=== PATIENT | male | born 1960 | race Caucasian/White ===

== ENCOUNTER 2019-12-11 17:31 | Emergency (ER) | payer OTHER, SELFPAY ==
[2019-12-11 17:38] VITALS: BP 147/85; PULSE 84; RESP 14; TEMP 36.6; O2SAT 99; BMI 33.5
--- NOTE | 2019-12-11 19:34 | ED_ITS ---
HPI - Wound/Laceration General Chief Complaint: Wound/Laceration Stated Complaint: Left thumb laceration, cut with table saw Time Seen by Provider: 12/11/19 19:34 Source: patient Mode of arrival: Ambulatory Limitations: no limitations History of Present Illness HPI narrative: The patient injured his left thumb about 40 minutes prior to arriving ER. He was using a table saw at home, he nicked the tip of his left t humb with the saw. He is bandage when I enter the room. There is no active bleeding. He is right-hand dominant. His last tetanus is unknown. He has no other acute injuries. Related Data Home Medications Medication Instructions Recorded Confirmed multivitamin [Multiple Vitamins] 1 tab PO QDAY #0 10/25/16 04/21/19 Previous Rx's Medication Instructions Recorded azithromycin 500 mg tablet See Rx Instructions PO .COMPLEX #6 04/21/19 tab lisinopril 20 1 tab PO QDAY #90 tab 10/07/19 mg-hydrochlorothiazide 12.5 mg tablet paroxetine HCl 40 mg tablet 40 mg PO DAILY #90 tab 10/07/19 Allergies Allergy/AdvReac Type Severity Reaction Status Date / Time No Known Drug Allergies Allergy Verified 12/11/19 17:38 Review of Systems Review of Systems ROS Unobtainable: All systems reviewed & are unremarkable except as noted in HPI and below Musculoskeletal Comments: Left thumb injuries noted HPI. Integumentary/Breasts Skin/Breast: Reports system reviewed and no additional complaints, except as docu Neurologic Comments: No numbness or tenderness to the left thumb. Patient History Medical History Anxiety (Chronic ~1999) Chicken pox (Resolved) Chronic back pain (Chronic ~1999) Hearing loss (Chronic ~2001) Hypertension (Chronic ~2005) Measles (Resolved) Mumps (Resolved) Shoulder pain (Chronic ~2014) Sleep apnea (Chronic ~2014) Vertigo (Chronic ~1999) Vision disorder (Chronic) Surgical History Anesthesia (Resolved) History of knee replacement (~2014) Status post rotator cuff repair (~2014) Family History Brother Age: 68 Hypertension Brother Age: 65 Hypertension Brother Age: 60 Hypertension Father Hypertension Mother Hypertension Stroke Sister Age: 67 Hypertension Social History marital status: household members: spouse lives independently: Yes caregiver/support person: No education level: vocational occupational status: employed Smoking Status: Former smoker alcohol intake: current substance use type: does not use Smoking Status: Former smoker alcohol intake frequency: 0-2 drinks per day Substance Use Type: does not use Exam Initial Vital Signs Initial Vital Signs: Vital Signs Temperature 97.9 F 12/11/19 17:38 Pulse Rate 84 12/11/19 17:38 Respiratory Rate 14 12/11/19 17:38 Blood Pressure 147/85 H 12/11/19 17:38 Pulse Oximetry 99 12/11/19 17:38 Const General: cooperative and well developed Nutritional Appearance: well nourished Skin Other: Superficial laceration to the tip of the left index finger with small avulsion tissue. The site will be cleansed and bandaged. No closure is indicated. Neuro General: alert, oriented x3 and no focal motor deficits Speech: speech normal Extrem Other: As noted above on skin injury. Course Course Course Narrative: Tetanus is updated. The laceration was cleansed and bandaged by the patient's nurse. Orders Ordered: Discontinued Medications Diphtheria/Tetanus/Acell Pertussis (Adacel) 0.5 ml IM .ONCE ONE Stop: 12/11/19 20:04 Last Admin: 12/11/19 20:04 Dose: 0.5 ml Documented by: RONAN Tetanus/Diphtheria Toxoids (Td) 0.5 ml IM .ONCE ONE Stop: 12/11/19 19:56 Vital Signs Vital signs: Vital Signs - 8 hr 12/11/19 20:02 Pulse Rate 64 Respiratory Rate 15 Blood Pressure [Right Arm] 152/89 H Pulse Oximetry 98 Discharge Plan Departure Patient Disposition: Home Clinical Impression: Laceration of finger Qualifiers: Encounter type: initial encounter Finger: thumb Damage to nail status: without damage Foreign body presence: without foreign body Laterality: left Qualified Code(s): S61.012A - Laceration without foreign body of left thumb without damage to nail, initial encounter Discharge Date/Time: 12/11/19 20:11 Instructions: DI for Minor Laceration Activity Restrictions/Additional Instructions: Keep the bandage in place for 2 days. Afterwards cover the injury when physically active, otherwise leave the injury open to the air. Return here if he develops concerns about infection or other problems. Prescriptions: No Action azithromycin 500 mg tablet See Rx Instructions PO .COMPLEX Qty: 6 RF: 0 multivitamin [Multiple Vitamins] 1 EACH tablet 1 tab PO QDAY Qty: 0 RF: 0 lisinopril-hydrochlorothiazide 20-12.5 mg tablet 1 tab PO QDAY Qty: 90 RF: 0 paroxetine HCl 40 mg tablet 40 mg PO DAILY Qty: 90 RF: 0 Referrals: Siobhan Skinner DO [Primary Care Provider] -
[2019-12-11 20:02] VITALS: BP 152/89; PULSE 64; RESP 15; O2SAT 98
[2019-12-11] MEDS: TET,DIPH,PERTUSS(ACELL),VAC/PF 0.5 ML SYRINGE IM (20:04)
== END 2019-12-11 20:11 | disposition home or self-care (01) ==
PROVIDERS: Emergency Provider Emergency Medicine; PCP Family Medicine
DX: S61.012A Laceration without foreign body of left thumb without damage to nail, initial encounter (principal); W29.3XXA Contact with powered garden and outdoor hand tools and machinery, initial encounter; Z23 Encounter for immunization
CPT/HCPCS: 90471; 99283; 90715

== ENCOUNTER → 2020-02-05 09:28 | Outpatient (CLI) | payer OTHER, SELFPAY ==
[2020-02-05 10:31] LABS: Add Manual Diff / Slide Review NO; Basophils Absolute Auto 0 /uL (0-100); Basophils Percent Auto 0.6 % (0-2); Eosinophils Absolute Auto 200 /uL (0-450); Eosinophils Percent Auto 3.1 % (2-4); Hemoglobin 13.4 g/dL (13.5-17.5); Lymphocytes Absolute Auto 1500 /uL (1100-4500); Mean Corpuscular HGB Conc 33.5 % (30-36); Mean Corpuscular Hemoglobin 30.4 PG (26-34); Mean Corpuscular Volume 90.8 fL (80-100); Monocytes Absolute Auto 500 /uL (0-900); Monocytes Percent Auto 8.3 % (3-14); Neutrophils Absolute Auto 3700 /uL (1500-7000); Platelet Count 214 X10^3/uL (150-400); Red Blood Cell Count 4.41 X10^6/uL (4.5-5.9); Red Cell Distribution Width 13.4 % (11.6-14.8); White Blood Cell Count 5.9 X10^3/uL (4.5-11.0)
[2020-02-05 11:42] LABS: Alanine Aminotransferase 29 IU/L (<50); Albumin 4.2 g/dL (3.5-5.0); Albumin Globulin Ratio 1.8 (1.0-2.8); Alkaline Phosphatase 55 U/L (38-126); Aspartate Aminotransferase 33 IU/L (17-59); BUN Creatinine Ratio 16.5 (6-22); Bilirubin Total 0.5 mg/dL (0.2-1.3); Blood Urea Nitrogen 20 mg/dL (9-20); Calcium 9.7 mg/dL (8.4-10.2); Carbon Dioxide 28 mmol/L (22-32); Chloride 103 mmol/L (98-107); Cholesterol 171 mg/dL (140-199); Estimated Glomerular Filt Rate > 60.0 mL/min (>60); Globulin 2.4 g/dL (1.7-4.1); Glucose 95 mg/dL (70-100); HDL Cholesterol 43 mg/dL (40-60); HEMOLYSIS < 15 (0-50); LDL Cholesterol Calculated 93 mg/dL (<100); Potassium 4.5 mmol/L (3.4-5.1); Sodium 138 mmol/L (137-145); Total Protein 6.6 g/dL (6.3-8.2); Triglycerides 177 mg/dL (35-150)
[2020-02-05 12:13] LABS: Prostate Specific Antigen Scrn 0.308 ng/mL (0.1-4.0)
== END ==
PROVIDERS: PCP Family Medicine; Referring Provider Family Medicine; Visit Provider Family Medicine
DX: Z51.81 Encounter for therapeutic drug level monitoring (principal); E78.5 Hyperlipidemia, unspecified; Z12.5 Encounter for screening for malignant neoplasm of prostate; I10 Essential (primary) hypertension
CPT/HCPCS: 36415; 80053; 80061; 85025; G0103

== ENCOUNTER 2020-05-28 19:37 | Observation (INO) | payer OTHER, SELFPAY ==
[2020-05-28] VITALS (9 sets, daily range): BP systolic 110–142; BP diastolic 72–89; PULSE 91–107; RESP 14–25; TEMP 36.6; O2SAT 93–97; BMI 32.1
[2020-05-28 20:23] LABS: Add Manual Diff / Slide Review NO; Basophils Absolute Auto 100 /uL (0-100); Basophils Percent Auto 0.7 % (0-2); Eosinophils Absolute Auto 200 /uL (0-450); Eosinophils Percent Auto 2.1 % (2-4); Hematocrit 37.9 % (41-53); Hemoglobin 12.9 g/dL (13.5-17.5); Lymphocytes Absolute Auto 2200 /uL (1100-4500); Mean Corpuscular HGB Conc 33.9 % (30-36); Mean Corpuscular Hemoglobin 30.8 PG (26-34); Mean Corpuscular Volume 90.9 fL (80-100); Monocytes Absolute Auto 600 /uL (0-900); Monocytes Percent Auto 6.8 % (3-14); Neutrophils Absolute Auto 5100 /uL (1500-7000); Neutrophils Percent Auto 63.4 % (50-75); Platelet Count 227 X10^3/uL (150-400); Red Blood Cell Count 4.17 X10^6/uL (4.5-5.9); Red Cell Distribution Width 12.6 % (11.6-14.8); White Blood Cell Count 8.1 X10^3/uL (4.5-11.0)
[2020-05-28 20:26] LABS: Prothrombin Time 12.1 SECONDS (10.1-12.7)
[2020-05-28 20:28] LABS: PTT Partial Thromboplastin Tim 30 SECONDS (26.4-36.2)
[2020-05-28 20:30] LABS: Alanine Aminotransferase 28 IU/L (<50); Albumin 4.3 g/dL (3.5-5.0); Albumin Globulin Ratio 1.5 (1.0-2.8); Alkaline Phosphatase 48 U/L (38-126); Aspartate Aminotransferase 38 IU/L (17-59); BUN Creatinine Ratio 20.9 (6-22); Bilirubin Total 0.5 mg/dL (0.2-1.3); Blood Urea Nitrogen 28 mg/dL (9-20); Calcium 9.2 mg/dL (8.4-10.2); Carbon Dioxide 26 mmol/L (22-32); Chloride 107 mmol/L (98-107); Estimated Glomerular Filt Rate 54.8 mL/min (>60); Globulin 2.9 g/dL (1.7-4.1); Glucose 129 mg/dL (70-100); HEMOLYSIS 42 (0-50); Potassium 4.3 mmol/L (3.4-5.1); Sodium 137 mmol/L (137-145); Total Protein 7.2 g/dL (6.3-8.2)
--- NOTE | 2020-05-28 20:58 | PC.NURSE ---
patient states black stool for 2 days. Today it got worse with diarrhea. He does not have SOB or dizziness but he is easily fatigued. His lower eyelids are pink and mucous membranes are as well.
[2020-05-28] MEDS: SODIUM CHLORIDE 0.9% 1,000 ML 1000 ML IV (22:27)
--- NOTE | 2020-05-28 22:28 | PC.NURSE ---
verbal order for 1l to be infused at 1000mls/ hour provider order
[2020-05-28 23:30] LABS: Hematocrit 34.8 % (41-53); Hemoglobin 11.8 g/dL (13.5-17.5)
[2020-05-28 23:42] LABS: COVID19 -Nasal RAPID Negative (Negative)
[2020-05-29] VITALS (12 sets, daily range): BP systolic 108–131; BP diastolic 67–90; PULSE 70–88; RESP 13–28; TEMP 36.1–37.2; O2SAT 96–98; BMI 32.1
--- NOTE | 2020-05-29 01:01 | ED.GIBLEED ---
HPI - GI Bleed General Chief complaint: GI Bleed Stated complaint: GASTRIC INSTESTINAL BLACK STOOL Source: patient Mode of arrival: Ambulatory Limitations: no limitations History of Present Illness HPI Narrative: 60-year-old gentleman with a history of hypertension and mild arthritis complaints presents with 2 to T days of black stool with increasing volumes of stool, more diarrhea, increased GI distress without vomiting. Patient has never had a GI bleed previously he does note that he takes 2-3 Aleve every night for simple musculoskeletal complaints. Denies any fevers, chills, chest pain, dyspnea, orthopnea. He is not having overt abdominal pain but does note excessive bowel from [place]. No urinary symptoms, no lower extremity edema and no neurologic complaints today. Related Data Home Medications Medication Instructions Recorded Confirmed multivitamin [Multiple Vitamins] 1 tab PO QDAY #0 10/25/16 02/05/20 Previous Rx's Medication Instructions Recorded lisinopril 20 1 tab PO QDAY #90 tab 02/05/20 mg-hydrochlorothiazide 12.5 mg tablet paroxetine HCl 40 mg tablet 40 mg PO DAILY #90 tab 02/05/20 Allergies Allergy/AdvReac Type Severity Reaction Status Date / Time No Known Drug Allergies Allergy Verified 02/05/20 08:48 Review of Systems Review of Systems Narrative: Remainder of review of systems including constitutional, ENT, cardiovascular, respiratory, GI, , musculoskeletal, skin, neurologic and psychiatric systems reviewed and are unremarkable except as noted in HPI. Patient History Medical History Anxiety (Chronic ~1999) Chicken pox (Resolved) Chronic back pain (Chronic ~1999) Hearing loss (Chronic ~2001) Hypertension (Chronic ~2005) Measles (Resolved) Mumps (Resolved) Shoulder pain (Chronic ~2014) Sleep apnea (Chronic ~2014) Vertigo (Chronic ~1999) Vision disorder (Chronic) Surgical History Anesthesia (Resolved) History of knee replacement (~2014) Status post rotator cuff repair (~2014) Family History Brother Age: 69 Hypertension Brother Age: 66 Hypertension Brother Age: 61 Hypertension Father Hypertension Mother Hypertension Stroke Sister Age: 68 Hypertension Social History marital status: household members: spouse lives independently: Yes caregiver/support person: No education level: vocational occupational status: employed Smoking Status: Former smoker alcohol intake: current substance use type: does not use Smoking Status: Former smoker alcohol intake frequency: 0-2 drinks per day Alcohol type: beer Substance Use Type: does not use Exam Narrative Exam Narrative: General: Healthy appearing, in no acute distress. Able to give a complete and coherent history. Well-nourished well-developed HEENT: Moist mucous membranes, normal sclera with reactive pupils, Neck: , supple Respiratory: Lungs are clear to auscultation, no wheezing no rales no rhonchi. Full and symmetrical air movement Cardiac: Regular rate and rhythm no murmurs no bruits Abdomen: Soft nontender, hyperactive bowel tones, no flank pain Skin: Warm and dry, no rashes Neurologic: Grossly neurologically intact with no obvious asymmetries or abnormalities Extremities: No trauma, well perfused Psych: Cooperative, appropriate insight and affect Initial Vital Signs Initial Vital Signs: Vital Signs Temperature 97.8 F 05/28/20 19:42 Pulse Rate 107 H 05/28/20 19:42 Respiratory Rate 20 05/28/20 19:42 Blood Pressure 142/89 H 05/28/20 19:42 Pulse Oximetry 97 05/28/20 19:42 Course Orders Ordered: ED Orders 05/28/20 20:10 Complete Blood Count AUTO DIFF Stat Comprehensive Metabolic Panel Stat Partial Thromboplastin Time Stat Prothrombin Time INR Stat 05/28/20 21:18 COVID19 Stat 05/28/20 21:42 EKG-12 Lead Stat 05/28/20 23:13 Hemoglobin and Hematocrit Stat 05/29/20 01:14 Partial Thromboplastin Time Stat Prothrombin Time INR Stat Sodium Chloride (Normal Saline 0.9%) 1,000 mls @ 150 mls/hr IV CONT DI Last Infusion: 05/29/20 00:50 Dose: 0 mls/hr Documented by: Admin: 05/28/20 22:27 Dose: 1,000 mls/hr Documented by: LYNDSEY Pantoprazole Sodium 80 mg/ (Sodium Chloride) 100 mls @ 10 mls/hr IV CONT DI Last Infusion: 05/29/20 02:10 Dose: 8 mg/hr, 10 mls/hr Documented by: Admin: 05/29/20 01:26 Dose: 8 mg/hr, 10 mls/hr Documented by: ADRYAN Sodium Chloride (Normal Saline 0.9%) 1,000 mls @ 150 mls/hr IV CONT DI Last Infusion: 05/29/20 02:10 Dose: 150 mls/hr Documented by: Admin: 05/29/20 01:27 Dose: 150 mls/hr Documented by: ADRYAN Vital Signs Vital signs: Vital Signs - 8 hr 05/28/20 22:09 05/28/20 22:11 05/28/20 22:30 Pulse Rate 100 H 100 H 91 H Respiratory Rate 15 14 14 Blood Pressure 110/72 117/79 Pulse Oximetry 93 95 95 05/28/20 23:00 05/28/20 23:30 05/29/20 00:00 Pulse Rate 93 H 92 H 85 Respiratory Rate 15 18 14 Blood Pressure 118/72 126/74 114/70 Pulse Oximetry 95 96 96 05/29/20 00:30 05/29/20 01:00 05/29/20 01:01 Pulse Rate 84 88 84 Respiratory Rate 15 28 H 23 Blood Pressure 114/67 131/73 Pulse Oximetry 96 97 98 05/29/20 01:30 05/29/20 02:00 Pulse Rate 82 79 Respiratory Rate 14 13 Blood Pressure 129/84 120/76 Pulse Oximetry 97 96 MDM - GI Bleed Medical Records Attestation: I reviewed the patient's medical records. Lab Data Attestation: I reviewed the patient's lab results. Result diagrams: 05/28/20 23:13 05/28/20 20:10 Labs: Lab Results 05/28/20 05/28/20 05/28/20 Range/Units 20:10 20:10 20:10 WBC 8.1 (4.5-11.0) X10^3/uL RBC 4.17 L (4.5-5.9) X10^6/uL Hgb 12.9 L (13.5-17.5) g/dL Hct 37.9 L (41-53) % MCV 90.9 (80-100) fL MCH 30.8 (26-34) PG MCHC 33.9 (30-36) % RDW 12.6 (11.6-14.8) % Plt Count 227 (150-400) X10^3/uL Neut % (Auto) 63.4 (50-75) % Lymph % (Auto) 27.0 (25-40) % [place] % (Auto) 6.8 (3-14) % Eos % (Auto) 2.1 (2-4) % Baso % (Auto) 0.7 (0-2) % Neut # (Auto) 5100 (9924-9998) /uL Lymph # (Auto) 2200 (2976-7669) /uL [place] # (Auto) 600 (0-900) /uL Eos # (Auto) 200 (0-450) /uL Baso # (Auto) 100 (0-100) /uL PT 12.1 (10.1-12.7) SECONDS INR 1.0 (0.9-1.3) APTT 30 (26.4-36.2) SECONDS Sodium 137 (137-145) mmol/L Potassium 4.3 (3.4-5.1) mmol/L Chloride 107 (98-107) mmol/L Carbon Dioxide 26 (22-32) mmol/L BUN 28 H (9-20) mg/dL Creatinine 1.34 H (0.66-1.25) mg/dL Estimated GFR 54.8 L (>60) mL/min BUN/Creatinine Ratio 20.9 (6-22) Glucose 129 H (70-100) mg/dL Calcium 9.2 (8.4-10.2) mg/dL Total Bilirubin 0.5 (0.2-1.3) mg/dL AST 38 (17-59) IU/L ALT 28 (<50) IU/L Alkaline Phosphatase 48 (38-126) U/L Total Protein 7.2 (6.3-8.2) g/dL Albumin 4.3 (3.5-5.0) g/dL Globulin 2.9 (1.7-4.1) g/dL Albumin/Globulin Ratio 1.5 (1.0-2.8) COVID-19 PCR (Negative) 05/28/20 05/28/20 05/29/20 Range/Units 21:18 23:13 01:14 WBC (4.5-11.0) X10^3/uL RBC (4.5-5.9) X10^6/uL Hgb 11.8 L (13.5-17.5) g/dL Hct 34.8 L (41-53) % MCV (80-100) fL MCH (26-34) PG MCHC (30-36) % RDW (11.6-14.8) % Plt Count (150-400) X10^3/uL Neut % (Auto) (50-75) % Lymph % (Auto) (25-40) % [place] % (Auto) (3-14) % Eos % (Auto) (2-4) % Baso % (Auto) (0-2) % Neut # (Auto) (2936-8240) /uL Lymph # (Auto) (1516-3701) /uL [place] # (Auto) (0-900) /uL Eos # (Auto) (0-450) /uL Baso # (Auto) (0-100) /uL PT (10.1-12.7) SECONDS INR (0.9-1.3) APTT 30 (26.4-36.2) SECONDS Sodium (137-145) mmol/L Potassium (3.4-5.1) mmol/L Chloride (98-107) mmol/L Carbon Dioxide (22-32) mmol/L BUN (9-20) mg/dL Creatinine (0.66-1.25) mg/dL Estimated GFR (>60) mL/min BUN/Creatinine Ratio (6-22) Glucose (70-100) mg/dL Calcium (8.4-10.2) mg/dL Total Bilirubin (0.2-1.3) mg/dL AST (17-59) IU/L ALT (<50) IU/L Alkaline Phosphatase (38-126) U/L Total Protein (6.3-8.2) g/dL Albumin (3.5-5.0) g/dL Globulin (1.7-4.1) g/dL Albumin/Globulin Ratio (1.0-2.8) COVID-19 PCR Negative (Negative) 05/29/20 Range/Units 01:14 WBC (4.5-11.0) X10^3/uL RBC (4.5-5.9) X10^6/uL Hgb (13.5-17.5) g/dL Hct (41-53) % MCV (80-100) fL MCH (26-34) PG MCHC (30-36) % RDW (11.6-14.8) % Plt Count (150-400) X10^3/uL Neut % (Auto) (50-75) % Lymph % (Auto) (25-40) % [place] % (Auto) (3-14) % Eos % (Auto) (2-4) % Baso % (Auto) (0-2) % Neut # (Auto) (2327-2862) /uL Lymph # (Auto) (2636-2671) /uL [place] # (Auto) (0-900) /uL Eos # (Auto) (0-450) /uL Baso # (Auto) (0-100) /uL PT 12.5 (10.1-12.7) SECONDS INR 1.1 (0.9-1.3) APTT (26.4-36.2) SECONDS Sodium (137-145) mmol/L Potassium (3.4-5.1) mmol/L Chloride (98-107) mmol/L Carbon Dioxide (22-32) mmol/L BUN (9-20) mg/dL Creatinine (0.66-1.25) mg/dL Estimated GFR (>60) mL/min BUN/Creatinine Ratio (6-22) Glucose (70-100) mg/dL Calcium (8.4-10.2) mg/dL Total Bilirubin (0.2-1.3) mg/dL AST (17-59) IU/L ALT (<50) IU/L Alkaline Phosphatase (38-126) U/L Total Protein (6.3-8.2) g/dL Albumin (3.5-5.0) g/dL Globulin (1.7-4.1) g/dL Albumin/Globulin Ratio (1.0-2.8) COVID-19 PCR (Negative) Point of Care Testing Stool Occult Blood Positive Urine Dip Bedside Urine Glucose Negative Bedside Urine Bilirubin - Negative Bedside Urine Ketone - Negative Urine Specific [place] 1.030 Bedside Urine Occult Blood - Negative Bedside Urine pH 6.0 Bedside Urine Protein - Negative Bedside Urine Urobilinogen - Negative Bedside Urine Nitrite - Negative Bedside Urine Leukocytes - Negative Esterase ECG Data Attestation: I personally reviewed and interpreted this ECG as follows: Interpretation: Sinus rhythm at a rate of 91 Normal axis, normal intervals No acute ischemia MDM Narrative Medical decision making narrative: 60-year-old gentleman presents with 3 days of black stools, guaiac positive with slight decrease in H&H. History of nonsteroidal use daily. Minor renal insufficiency with mild dehydration at this time. He is given fluids, Protonix and presumed to have a nonsteroidal-induced upper GI bleed, uncomplicated and hemodynamically stable. Will be admitted for further observation and evaluation. Safe for transfer to the floor Discharge Plan Departure Patient Disposition: Admitted as Observation Clinical Impression: Acute GI bleeding Discharge Date/Time: 05/29/20 02:27 Referrals: Siobhan Skinner DO [Primary Care Provider] - Admit Date/Time: 05/29/20 02:05 Admit Provider: Lillie Sanchez
[2020-05-29] MEDS: PANTOPRAZOLE 80 MG in SODIUM CHLORIDE 0.9% 100 ML 10 ML IV (01:26)
[2020-05-29] MEDS: SODIUM CHLORIDE 0.9% 1,000 ML 150 ML IV ×2 (01:27→06:56)
[2020-05-29 01:32] LABS: PTT Partial Thromboplastin Tim 30 SECONDS (26.4-36.2)
[2020-05-29 01:38] LABS: INR 1.1 (0.9-1.3); Prothrombin Time 12.5 SECONDS (10.1-12.7)
--- NOTE | 2020-05-29 07:26 | PC.NURSE ---
disregard HCp notification at 0600, wrong pt
--- NOTE | 2020-05-29 08:06 | PM.HP.1 ---
History of Present Illness History of Present Illness Date Patient Seen: 05/29/20 Time Patient Seen: 02:30 Chief complaint: GASTRIC INSTESTINAL BLACK STOOL Narrative: Patient is 60-year-old male with a history of hypertension and anxiety. Patient takes lisinopril 20 mg of paroxetine 40 mg. Who states that 2 days ago he began to have 2 stools a day that were black than yesterday evening approximately 630 he began to have black diarrhea, his last diarrhea was at 2:00 p.m. patient denies any pain nausea vomiting artem blood fever body aches chills chest pain or shortness of breath with these events or currently. Patient denies any history of GI bleed, but does note that he drinks 2-3 beers per day and takes 2-3 tabs of Aleve nightly. Patient's vitals upon admission 129/84 heart rate 82 respiration 14 temp 97.8? O2 saturation 97%. Estimated GFR 54.8 creatinine 1.34, BUN 28, hematocrit 34.8, hemoglobin 11.8, RBC 4.17, negative procalcitonin negative PT. 60-year-old gentleman with a history of hypertension and mild arthritis complaints presents with 2 to T days of black stool with increasing volumes of stool, more diarrhea, increased GI distress without vomiting. Patient has never had a GI bleed previously he does note that he takes 2-3 Aleve every night for simple musculoskeletal complaints. Denies any fevers, chills, chest pain, dyspnea, orthopnea. He is not having overt abdominal pain but does note excessive bowel from [place]. No urinary symptoms, no lower extremity edema and no neurologic complaints today. Patient History Medical History Anxiety (Chronic ~1999) Chicken pox (Resolved) Chronic back pain (Chronic ~1999) Hearing loss (Chronic ~2001) Hypertension (Chronic ~2005) Measles (Resolved) Mumps (Resolved) Shoulder pain (Chronic ~2014) Sleep apnea (Chronic ~2014) Vertigo (Chronic ~1999) Vision disorder (Chronic) Surgical History Anesthesia (Resolved) History of knee replacement (~2014) Status post rotator cuff repair (~2014) Family & Social History Family History Brother Age: 69 Hypertension Brother Age: 66 Hypertension Brother Age: 61 Hypertension Father Hypertension Mother Hypertension Stroke Sister Age: 68 Hypertension Social History: household members spouse Prior Living Arrangements House lives independently Yes caregiver/support person No Safety & Behavioral: Feels Safe in Current Yes Environment Suicidal Ideation Description None Suicide Plan Description No Plan Tobacco & Substance use: Tobacco type cigarettes Smoking Status Former smoker alcohol intake current alcohol intake frequency 0-2 drinks per day Substance Use Type does not use Meds Home Medications and Allergies Home Medications Medication Instructions Recorded Confirmed Type multivitamin [Multiple Vitamins] 1 tab PO QDAY #0 10/25/16 02/05/20 History lisinopril 20 1 tab PO QDAY #90 tab 02/05/20 02/05/20 Rx mg-hydrochlorothiazide 12.5 mg tablet paroxetine HCl 40 mg tablet 40 mg PO DAILY #90 tab 02/05/20 02/05/20 Rx Allergies Allergy/AdvReac Type Severity Reaction Status Date / Time No Known Drug Allergies Allergy Verified 02/05/20 08:48 Review of Systems Review of Systems ROS: Yes All systems reviewed with the patient and are negative except as otherwise documented Exam Vital Signs (past 8 hours): - 05/29/20 00:30 05/29/20 01:00 05/29/20 01:01 Temperature Pulse Rate 84 88 84 Respiratory Rate 15 28 H 23 Blood Pressure 114/67 131/73 Pulse Oximetry 96 97 98 05/29/20 01:30 05/29/20 02:00 05/29/20 02:20 Temperature 98.7 F Pulse Rate 82 79 87 Respiratory Rate 14 13 18 Blood Pressure 129/84 120/76 130/82 Pulse Oximetry 97 96 97 Oxygen Delivery Method Room Air Oxygen Flow Rate 0 Narrative Exam Narrative: General: Healthy appearing, in no acute distress. Able to give a complete and coherent history. Well-nourished well-developed HEENT: Moist mucous membranes, normal sclera with reactive pupils, Neck: , supple Respiratory: Lungs are clear to auscultation, no wheezing no rales no rhonchi. Full and symmetrical air movement Cardiac: Regular rate and rhythm no murmurs no bruits Abdomen: Soft nontender, hyperactive bowel tones, no flank pain Skin: Warm and dry, no rashes Neurologic: Grossly neurologically intact with no obvious asymmetries or abnormalities Extremities: No trauma, well perfused Psych: Cooperative, appropriate insight and affect Objective Labs Result Diagrams: 05/28/20 23:13 05/28/20 20:10 Labs: Laboratory Results - last 24 hr 05/28/20 05/28/20 05/28/20 20:10 20:10 20:10 WBC 8.1 RBC 4.17 L Hgb 12.9 L Hct 37.9 L MCV 90.9 MCH 30.8 MCHC 33.9 RDW 12.6 Plt Count 227 Neut % (Auto) 63.4 Lymph % (Auto) 27.0 [place] % (Auto) 6.8 Eos % (Auto) 2.1 Baso % (Auto) 0.7 Neut # (Auto) 5100 Lymph # (Auto) 2200 [place] # (Auto) 600 Eos # (Auto) 200 Baso # (Auto) 100 PT 12.1 INR 1.0 APTT 30 Sodium 137 Potassium 4.3 Chloride 107 Carbon Dioxide 26 BUN 28 H Creatinine 1.34 H Estimated GFR 54.8 L BUN/Creatinine Ratio 20.9 Glucose 129 H Calcium 9.2 Total Bilirubin 0.5 AST 38 ALT 28 Alkaline Phosphatase 48 Total Protein 7.2 Albumin 4.3 Globulin 2.9 Albumin/Globulin Ratio 1.5 COVID-19 PCR 05/28/20 05/28/20 05/29/20 21:18 23:13 01:14 WBC RBC Hgb 11.8 L Hct 34.8 L MCV MCH MCHC RDW Plt Count Neut % (Auto) Lymph % (Auto) [place] % (Auto) Eos % (Auto) Baso % (Auto) Neut # (Auto) Lymph # (Auto) [place] # (Auto) Eos # (Auto) Baso # (Auto) PT INR APTT 30 Sodium Potassium Chloride Carbon Dioxide BUN Creatinine Estimated GFR BUN/Creatinine Ratio Glucose Calcium Total Bilirubin AST ALT Alkaline Phosphatase Total Protein Albumin Globulin Albumin/Globulin Ratio COVID-19 PCR Negative 05/29/20 01:14 WBC RBC Hgb Hct MCV MCH MCHC RDW Plt Count Neut % (Auto) Lymph % (Auto) [place] % (Auto) Eos % (Auto) Baso % (Auto) Neut # (Auto) Lymph # (Auto) [place] # (Auto) Eos # (Auto) Baso # (Auto) PT 12.5 INR 1.1 APTT Sodium Potassium Chloride Carbon Dioxide BUN Creatinine Estimated GFR BUN/Creatinine Ratio Glucose Calcium Total Bilirubin AST ALT Alkaline Phosphatase Total Protein Albumin Globulin Albumin/Globulin Ratio COVID-19 PCR Assessment & Plan Assessment & Plan narrative: 1. Acute GI bleed, stable, acute, present on admission -patient on normal saline 150 cc an hour/Protonix drip 80mg/8 mg per hour -patient NPO -general surgery consult -continue labs H&H CBC CMP PT and INR -negative COVID, EKG stable within normal limits -positive stool occult 2. Hypertension-well controlled chronic Code: Full code VTE prophylaxis: SCDs Surrogate: , Sharon Avendano This is a 60-year-old male who was admitted for acute GI bleed, likely secondary to NSAID and alcohol use, he is admitted to observation. Patient has failed outpatient management and requires a general surgery consult and inpatient medical management. Quality VTE Deep Vein Thrombosis/Pulmonary Embolism Present on Admission: No
[2020-05-29 12:43] LABS: Add Manual Diff / Slide Review NO; Basophils Absolute Auto 0 /uL (0-100); Basophils Percent Auto 0.8 % (0-2); Eosinophils Absolute Auto 100 /uL (0-450); Eosinophils Percent Auto 2.6 % (2-4); Hematocrit 31.2 % (41-53); Hemoglobin 10.8 g/dL (13.5-17.5); Lymphocytes Absolute Auto 2100 /uL (1100-4500); Lymphocytes Percent Auto 38.3 % (25-40); Mean Corpuscular HGB Conc 34.5 % (30-36); Mean Corpuscular Hemoglobin 31.3 PG (26-34); Mean Corpuscular Volume 90.9 fL (80-100); Monocytes Absolute Auto 400 /uL (0-900); Monocytes Percent Auto 8.1 % (3-14); Neutrophils Absolute Auto 2700 /uL (1500-7000); Neutrophils Percent Auto 50.2 % (50-75); Platelet Count 189 X10^3/uL (150-400); Red Blood Cell Count 3.43 X10^6/uL (4.5-5.9); Red Cell Distribution Width 12.8 % (11.6-14.8); White Blood Cell Count 5.5 X10^3/uL (4.5-11.0)
[2020-05-29 12:49] LABS: INR 1.1 (0.9-1.3); Prothrombin Time 12.8 SECONDS (10.1-12.7)
[2020-05-29 12:53] LABS: BUN Creatinine Ratio 20.4 (6-22); Blood Urea Nitrogen 20 mg/dL (9-20); Calcium 8.1 mg/dL (8.4-10.2); Carbon Dioxide 24 mmol/L (22-32); Chloride 111 mmol/L (98-107); Estimated Glomerular Filt Rate > 60.0 mL/min (>60); Glucose 98 mg/dL (70-100); HEMOLYSIS < 15 (0-50); Magnesium 1.9 mg/dL (1.6-2.3); Potassium 4.1 mmol/L (3.4-5.1); Sodium 137 mmol/L (137-145)
--- NOTE | 2020-05-29 13:11 | CM.DANOTE ---
Discharge Planning/Care Management DCP: assessment: case received, EMR reviewed and met with pt and his Sharla during Team Bedside Rounds. Pt is a 60 year old male who admitted early this morning to care of hospitalist team. PCP: Dr. Lito Skinner Consulting: [facility] Serial labs are in process with possibility of EGD if indicated. P: likely home when stable for same but..to be determined as POC proceeds. CM Discharge Assessment Start: 05/29/20 13:10 Freq: Status: Active Protocol: Document 05/29/20 13:11 ITV (Rec: 05/29/20 13:11 ITV [id number]) Discharge Planning Assessment Advance Directives? No History Provided By Patient,Family Member,Medical Record Has Patient been admitted in last 30 No days? Prior Living Arrangements House Household Members spouse Type of transportation used prior to Drives own vehicle admit Independent with ADL's Yes Is patient alert and oriented? Yes
[2020-05-29] MEDS: lisinopriL 20 MG TABLET PO (14:05)
[2020-05-29] MEDS: PARoxetine 20 MG TABLET 40 MG PO (14:05)
--- NOTE | 2020-05-29 17:13 | PC.NURSE ---
Addendum entered by Magalie Hernandes R.N. 05/29/20 17:44: dc instructions given to patient and . pt says they will call PCP and to set up appt. IV removed. all belongings returned to patient. Original Note: pt denied any dizziness, lightheadedness, pain, sob or n/v. vss. no bowel movement for richard shift.
== END 2020-05-29 17:45 | disposition home or self-care (01) ==
LOC: ED 05-29 01:41 → AC 05-29 02:05
PROVIDERS: Admitting Provider Nurse Practitioner Family; Emergency Provider Emergency Medicine; PCP Family Medicine; Referring Provider Emergency Medicine; Visit Provider Nurse Practitioner Family
DX: K92.1 Melena (principal); I10 Essential (primary) hypertension; F41.9 Anxiety disorder, unspecified; M19.90 Unspecified osteoarthritis, unspecified site; Z11.59 Encounter for screening for other viral diseases
CPT/HCPCS: 36415; 80048; 80053; 81003; 82272; 83735; 85014; 85018; 85025; 85610; 85730; 87635; 93005; 96361; 96365; 96366; 99284; G0378; C9113

== ENCOUNTER → 2020-06-01 13:27 | Outpatient (CLI) | payer OTHER, SELFPAY ==
[2020-05-29 02:20] VITALS: BMI 32.1
[2020-06-01 15:58] LABS: Add Manual Diff / Slide Review NO; Basophils Absolute Auto 0 /uL (0-100); Basophils Percent Auto 0.7 % (0-2); Eosinophils Absolute Auto 100 /uL (0-450); Eosinophils Percent Auto 2.4 % (2-4); Hematocrit 35.6 % (41-53); Hemoglobin 12.1 g/dL (13.5-17.5); Lymphocytes Absolute Auto 2000 /uL (1100-4500); Lymphocytes Percent Auto 34.8 % (25-40); Mean Corpuscular HGB Conc 33.8 % (30-36); Mean Corpuscular Hemoglobin 30.8 PG (26-34); Monocytes Absolute Auto 400 /uL (0-900); Monocytes Percent Auto 6.9 % (3-14); Neutrophils Absolute Auto 3100 /uL (1500-7000); Neutrophils Percent Auto 55.2 % (50-75); Platelet Count 237 X10^3/uL (150-400); Red Blood Cell Count 3.91 X10^6/uL (4.5-5.9); Red Cell Distribution Width 12.7 % (11.6-14.8); White Blood Cell Count 5.7 X10^3/uL (4.5-11.0)
[2020-06-01 16:28] LABS: BUN Creatinine Ratio 14.5 (6-22); Blood Urea Nitrogen 16 mg/dL (9-20); Carbon Dioxide 24 mmol/L (22-32); Chloride 106 mmol/L (98-107); Estimated Glomerular Filt Rate > 60.0 mL/min (>60); Glucose 106 mg/dL (70-100); HEMOLYSIS < 15 (0-50); Sodium 137 mmol/L (137-145)
== END ==
PROVIDERS: PCP Family Medicine; Referring Provider Family Medicine; Visit Provider Family Medicine
DX: K92.2 Gastrointestinal hemorrhage, unspecified (principal)
CPT/HCPCS: 36415; 80048; 85025

== ENCOUNTER → 2020-06-21 09:28 | Outpatient (CLI) | payer OTHER, SELFPAY ==
[2020-05-29 02:20] VITALS: BMI 32.1
[2020-06-21 11:51] LABS: COVID19 -Nasal RAPID Negative (Negative)
== END ==
PROVIDERS: PCP Family Medicine; Visit Provider Surgery
DX: Z01.812 Encounter for preprocedural laboratory examination (principal); Z20.828 Contact with and (suspected) exposure to other viral communicable diseases
CPT/HCPCS: 87635; 99211

== ENCOUNTER 2020-06-22 14:07 | Day surgery (SDC) | payer OTHER, SELFPAY ==
[2020-05-29 02:20] VITALS: BMI 32.1
[2020-06-22] VITALS (7 sets, daily range): BP systolic 107–140; BP diastolic 65–97; PULSE 88–108; RESP 11–16; TEMP 35.9–36.6; O2SAT 94–98; BMI 29.7
--- NOTE | 2020-06-22 | PATH_ITS ---
[facility] Accession Number: [id number] . 01 Material submitted: . PART A: duodenum - DUODENUM PART B: gastrointestinal site - STOMACH PART C: esophagus - DISTAL ESOPHAGUS PART D: rectum - RECTAL POLYP AT 25 CM . 01 Clinical history: . SCREENING COLONOSCOPY W/EGD . 02 Diagnosis: A. Duodenum, Biopsy: Duodenal mucosa with no diagnostic abnormality. Negative for active inflammation, features of sprue, dysplasia, or malignancy. . B. Stomach, Biopsy: Antral mucosa with reactive gastropathy. Negative for Helicobacter by immunohistochemistry. Negative for intestinal metaplasia. Negative for dysplasia and malignancy. . C. Distal Esophagus: Columnar mucosa with mild chronic inflammation. Negative for intestinal metaplasia. Negative for dysplasia and malignancy. . D. Rectum, Polyp at 25 cm, Biopsy: Hyperplastic polyp. [facility] 06/28/2020 1242 Local . 02 Electronically signed: . Stephanie Duncan MD, Pathologist NPI- [id number] . 01 Gross description: . Part A: DUODENUM: Received in formalin is 1 fragment(s) of andres, soft tissue measuring 0.3 x 0.2 x 0.1 cm submitted entirely in 1 cassette(s) Part B: STOMACH: Received in formalin is 1 fragment(s) of andres, soft tissue measuring 0.3 x 0.3 x 0.1 cm submitted entirely in 1 cassette(s) Part C: DISTAL ESOPHAGUS: Received in formalin are 2 fragment(s) of andres, soft tissue measuring 0.3 x 0.2 x 0.1 cm to 0.2 x 0.2 x 0.1 cm submitted entirely in 1 cassette(s) Part D: RECTAL POLYP AT 25 CM: Received in formalin is 1 fragment(s) of andres, soft tissue measuring 1.0 x 0.3 x 0.3 cm submitted entirely in 1 cassette(s) /QBJ 06/23/2020 1054 Local . 02 Microscopic: . B) An immunohistochemical stain was performed to evaluate for Helicobacter organisms and is negative. The control stain showed appropriate reactivity. . B-C) Alcian blue stains were performed on blocks B and C in order to evaluate for intestinal metaplasia, and are both negative. The control stain showed appropriate reactivity. . . . * This test was developed and its performance characteristics determined by [facility]. It has not been cleared or approved by the U.S. Food and Drug Administration. The FDA has determined that such clearance or approval is not necessary. This test is used for clinical purposes. It should not be regarded as investigational or for research. . 02 Pathologist provided ICD-10: Z12.11 . 02 CPT . 345331, 313673, 778702, 170411, 409859, [id number], [id number] Performed at: 01 [facility] [address] [facility], [place], [place] [id number] MD Ben Mandujano MD Phone: [phone] Performed at: 02 [facility] [address] [place], [place] [id number] MD Stephanie Duncan MD Phone: [phone]
[2020-06-22] MEDS: SODIUM CHLORIDE 0.9% 1,000 ML 200 ML IV (14:36)
--- NOTE | 2020-06-22 14:52 | PM.PREOP ---
Pre-operative Note COVID-19 COVID-19 status: Negative Result date/Date tested (Pos, Neg/Pending): 06/21/20 Interval Note History & Physical reviewed/Exam performed by Physician: Yes Changes to H&P: No ASA Class (for procedural sedation): II
--- NOTE | 2020-06-22 14:53 | P.OP.ENDO_ITS ---
Operative Date/Time/Diagnoses Date of procedure: 06/22/20 Time of procedure: 14:53 Pre-op diagnosis: GI bleed Post-op diagnosis: other (Gastric ulcers, healing. Low-grade esophagitis. Low- grade duodenitis. Single colon polyp.) Procedure & Clinicians Study performed: Esophagogastroduodenoscopy Procedural sedation performed by the endoscopist Biopsies with standard forceps of duodenum and the stomach, distal esophagus Colonoscopy Polypectomy 10 mm cold snare Procedural sedation performed by the endoscopist Indications: GI bleed Surgeon: Velia Serra Procedure Notes SCOAP/Timeout: Performed Procedure in detail: The patient was brought to the room and placed in left lateral decubitus position with all bony prominences padded. A bite block was positioned in the patient's mouth to protect the lips, teeth, and tongue for the procedure. A time-out was performed and then the patient was given procedural sedation starting with 4 mg of Versed and 100 mcg of fentanyl. An additional 8 mg of Versed and 200 micro g of fentanyl were given during the upper and lower endoscopy procedures. Vitals were monitored throughout the procedure and remained stable. Once adequately sedated, the procedure was begun. The lubricated gastroscope was passed through the bite block and across the tongue and into the esophagus without incident. A tubular view of the esophagus was maintained as the scope was advanced through the esophagus and into the stomach. The scope was advanced through the stomach and to the pylorus. The scope was gently popped through the pylorus and into the duodenal bulb. The scope was flexed and advanced into the second and third portions of the duodenum. The duodenum and duodenal bulb revealed some low-grade inflammation. This was biopsied. The scope was withdrawn into the stomach. The stomach revealed some healing pre-pyloric ulcers, with no active bleeding in the visible vessel. The ulcers were biopsied. The scope was retroflexed and the gastric cardia was examined. The hiatus appeared normal. No hiatal hernia was seen. The scope was then straightened, and withdrawn into the esophagus. The Z-line 38 cm was broken, with tongues of gastric mucosa coming up into the esophagus for about 1 to 2 cm. The distal esophagus was biopsied. The scope was then withdrawn through the esophagus with a tubular view. The scope was then withdrawn from the patient and attention was turned to the colonoscopy portion of the procedure. A rectal exam was performed revealing no abnormalitie. The colonoscope was then introduced to the rectum and advanced to the cecum in the usual fashion. [The cecum was identified by the appendiceal orifice, the mucosal tri-fold, and the ileocecal valve. The scope was then retracted while rotating side to side and examining each mucosal fold. A 5 mm pedunculated polyp was removed from 25 cm in the rectum using cold snare. At the conclusion of the procedure retroflexion was performed andsmall grade 1 internal hemorrhoids without stigmata of bleeding were seen]. The scope was then withdrawn from the rectum the procedure was concluded. The patient tolerated the procedure well and was transferred to the PACU in stable condition. Findings: gastric ulcer Specimen(s): other (Biopsies of duodenum, stomach, distal esophagus) Impression: Gastric ulcers, low-grade esophagitis, low-grade duodenitis, benign- appearing rectal polyp Post-procedure Recommendations: Colonscopy in 10 years (Depending on pathology results), EGD in 3 years (Depending on biopsy results), Continue medication(s) (Continue Protonix until biopsy results have returned) and Other recommendation (The contact you with pathology results, and final recommendations on medication use, repeat EGD and repeat colonoscopy.) Follow up: as needed Disposition: PACU
[2020-06-22] MEDS: LIDOCAINE 4% SOLN 50 ML 20 ML TOP (15:01)
[2020-06-22] MEDS: MIDAZOLAM 5 MG/5 ML VIAL IV (15:40)
[2020-06-22] MEDS: fentaNYL 250 MCG/5 ML INJ IV (15:40)
--- NOTE | 2020-06-22 16:09 | SUR.PHASEI ---
Assumed care from Katya RN, pt more awake, tolerated ice chips, then juice.
--- NOTE | 2020-06-22 16:42 | SUR.PHASEII ---
called, pt getting dressed, pt left when ready and left in stable condition, belly soft, no nausea, pain or discomfort.
== END 2020-06-22 16:45 | disposition home or self-care (01) ==
PROVIDERS: PCP Family Medicine; Referring Provider Family Medicine; Visit Provider Surgery
PROC: 0DJ08ZZ Inspection of Upper Intestinal Tract, Via Natural or Artificial Opening Endoscopic (ICD-10-PCS; CPT 43235; principal; 2020-06-22 15:15)
PROC: 0DJD8ZZ Inspection of Lower Intestinal Tract, Via Natural or Artificial Opening Endoscopic (ICD-10-PCS; CPT 45378; 2020-06-22 15:15)
DX: K25.9 Gastric ulcer, unspecified as acute or chronic, without hemorrhage or perforation (principal); K20.90 Esophagitis, unspecified without bleeding; K29.80 Duodenitis without bleeding; K64.0 First degree hemorrhoids; K62.1 Rectal polyp; K29.50 Unspecified chronic gastritis without bleeding; K31.9 Disease of stomach and duodenum, unspecified
CPT/HCPCS: 45385; 43239; J2250; J3010

== ENCOUNTER → 2020-12-20 16:02 | Outpatient (CLI) | payer OTHER, SELFPAY ==
[2020-05-29 02:20] VITALS: BMI 32.1
--- NOTE | 2020-12-20 16:03 | DI.RAD.S_ITS ---
PROCEDURE: XR HIP W PEL IF DONE RT 2V INDICATIONS: R flank/back/hip/groin pain TECHNIQUE: AP pelvis with lateral view(s) of the right hip(s). COMPARISON: None. FINDINGS: Bones: No fractures or dislocations. Pelvic ring appears intact. No suspicious bony lesions. There are degenerative changes of the right hip which are mild and the left hip which are minimal. The symphysis pubis has degenerative changes with subchondral sclerosis and cystic changes on the right. Soft tissues: The visualized bowel gas pattern is normal. No suspicious soft tissue calcifications. IMPRESSION: 1. Mild degenerative changes of the right hip. 2. Degenerative changes of the symphysis pubis. Dictated by: Esau Del Angle M.D. on 12/20/2020 at 16:47 Approved by: Esau Del Angel M.D. on 12/20/2020 at 16:49
== END ==
PROVIDERS: PCP Family Medicine; Referring Provider Family Medicine; Visit Provider Family Medicine
DX: M25.551 Pain in right hip (principal)
CPT/HCPCS: 73502

== ENCOUNTER → 2021-01-19 17:42 | Outpatient (CLI) | payer OTHER, SELFPAY ==
[2020-05-29 02:20] VITALS: BMI 32.1
[2021-01-19 18:20] LABS: Add Manual Diff / Slide Review NO; Basophils Absolute Auto 0 /uL (0-100); Basophils Percent Auto 0.8 % (0-2); Eosinophils Absolute Auto 100 /uL (0-450); Eosinophils Percent Auto 2.3 % (2-4); Hemoglobin 12.9 g/dL (13.5-17.5); Lymphocytes Absolute Auto 2200 /uL (1100-4500); Lymphocytes Percent Auto 36.9 % (25-40); Mean Corpuscular Hemoglobin 30.9 PG (26-34); Mean Corpuscular Volume 90.8 fL (80-100); Monocytes Absolute Auto 500 /uL (0-900); Monocytes Percent Auto 9.2 % (3-14); Neutrophils Absolute Auto 3000 /uL (1500-7000); Neutrophils Percent Auto 50.8 % (50-75); Platelet Count 213 X10^3/uL (150-400); Red Blood Cell Count 4.18 X10^6/uL (4.5-5.9); Red Cell Distribution Width 13.7 % (11.6-14.8); White Blood Cell Count 5.9 X10^3/uL (4.5-11.0)
[2021-01-19 18:40] LABS: BUN Creatinine Ratio 17.7 (6-22); Blood Urea Nitrogen 22 mg/dL (9-20); Carbon Dioxide 19 mmol/L (22-32); Chloride 109 mmol/L (98-107); Estimated Glomerular Filt Rate 59.9 mL/min (>60); Glucose 95 mg/dL (70-100); HEMOLYSIS < 15 (0-50); Sodium 137 mmol/L (137-145)
[2021-01-19 18:41] LABS: Hemoglobin A1C% w Est Avg Glu 5.4 % (4.0-6.0)
== END ==
PROVIDERS: PCP Family Medicine; Referring Provider Family Medicine; Visit Provider Family Medicine
DX: M25.551 Pain in right hip (principal); Z01.818 Encounter for other preprocedural examination
CPT/HCPCS: 36415; 80048; 83036; 85025

== ENCOUNTER → 2021-01-20 13:49 | Outpatient (CLI) | payer OTHER, SELFPAY ==
[2020-05-29 02:20] VITALS: BMI 32.1
== END ==
PROVIDERS: PCP Family Medicine; Referring Provider Orthopaedic Surgery Adult Reconstructive Orthopaedic Surgery; Visit Provider Orthopaedic Surgery Adult Reconstructive Orthopaedic Surgery
DX: Z01.818 Encounter for other preprocedural examination (principal)
CPT/HCPCS: 93005

== ENCOUNTER → 2021-02-07 08:40 | Outpatient (CLI) | payer OTHER, SELFPAY ==
[2020-05-29 02:20] VITALS: BMI 32.1
[2021-02-07 11:22] LABS: COVID19 -Nasal RAPID Negative (Negative)
== END ==
PROVIDERS: PCP Family Medicine; Visit Provider Physician Assistant
DX: Z01.812 Encounter for preprocedural laboratory examination (principal); Z20.822 Contact with and (suspected) exposure to COVID-19
CPT/HCPCS: 87635

== ENCOUNTER 2021-02-09 06:28 | Day surgery (SDC) | payer OTHER, SELFPAY ==
[2020-05-29 02:20] VITALS: BMI 32.1
[2021-02-02 08:59] VITALS: BMI 31.5
[2021-02-09] VITALS (14 sets, daily range): BP systolic 111–149; BP diastolic 67–98; PULSE 70–102; RESP 12–18; TEMP 36.2–37.1; O2SAT 95–100; BMI 31.5
--- NOTE | 2021-02-09 | DI.RAD.S_ITS ---
PROCEDURE: XR PELVIS 1-2V INDICATIONS: POST OP RIGHT HIP TECHNIQUE: 1 view of the lower pelvis acquired. COMPARISON: None. FINDINGS: Bones: Patient is status post total right hip arthroplasty, with hardware components in expected positions. The hip joint appears congruent. The visualized bony structures appear intact. Soft tissues: Overlying postoperative changes are noted. No suspicious soft tissue densities. IMPRESSION: Expected immediate postoperative appearance, status post total right hip arthroplasty. Dictated by: Chito Vergara M.D. on 02/09/2021 at 10:56 Approved by: Chito Vergara M.D. on 02/09/2021 at 10:56
--- NOTE | 2021-02-09 | DI.RAD.S_ITS ---
PROCEDURE: XR HIP W PEL IF DONE RT 2V INDICATIONS: RIGHT ANTERIOR HIP TECHNIQUE: 2 view(s) of the hip acquired. COMPARISON: [facility], CR, XR PELVIS WITH LATERAL HIP RIGHT, 01/04/2021, 8:40. [facility], CR, XR HIP W PEL IF DONE RT 2V, 12/20/2020, 16:04. FINDINGS: Bones: Patient is status post right hip arthroplasty, with hardware components in expected positions. The hip joint appears congruent. The visualized bony structures appear intact. Soft tissues: Overlying postoperative changes are noted. No suspicious soft tissue densities. IMPRESSION: C-arm images demonstrating expected postoperative appearance of right hip arthroplasty. Dictated by: Rigoberto Emmanuel RR Interpreted: Luis Barrera MD on 02/09/2021 at 10:39 Transcribed by: CATALINO on 02/09/2021 at 10:40 Approved by: Luis Barrera M.D. on 02/09/2021 at 11:33
[2021-02-09] MEDS: LACTATED RINGERS 1,000 ML 42 ML IV ×2 (07:10→09:30)
[2021-02-09] MEDS: ACETAMINOPHEN 325 MG TABLET 975 MG PO (07:11)
--- NOTE | 2021-02-09 07:42 | PM.PREOP ---
Pre-operative Note COVID-19 COVID-19 status: Negative Result date/Date tested (Pos, Neg/Pending): 02/07/21 Interval Note History & Physical reviewed/Exam performed by Physician: Yes Changes to H&P: No H&P completed within 30 days and has changed as indicated here:: Plan for right anterior DAVIN
[2021-02-09] MEDS: TRANEXAMIC ACID 1,000 MG in SODIUM CHLORIDE 0.9% 100 ML 200 ML IV ×2 (08:10→10:10)
[2021-02-09] MEDS: CEFAZOLIN 1 GM VIAL 2 GM IV ×2 (08:12→16:28)
--- NOTE | 2021-02-09 08:34 | SUR.OPER ---
Patient supine on padded [employer] table, one arm on padded arm board at <90, other arm padded and secured with tape across patient's chest, both legs secured in padded traction boots and positioned per surgeon, padded post at patient's groin, pressure points checked and padded.
[2021-02-09] MEDS: MORPHINE 4 MG INJ (08:50)
[2021-02-09] MEDS: ROPIVACAINE 0.5% INJ (08:50)
[2021-02-09] MEDS: SODIUM CHLORIDE IRRIG SOLUTION 250 ML, POVIDONE-IODINE SPONGE STICKS 1 APPLIC IRR (09:34)
--- NOTE | 2021-02-09 10:15 | P.OP_ITS ---
Operative Date/Time/Diagnoses Date of procedure: 02/09/21 Time of procedure: 10:15 Pre-op diagnosis: right hip OA Post-op diagnosis: same Procedure & Clinicians Procedure: Right anterior total hip arthroplasty Same procedure as scheduled: Yes Indications: Right hip osteoarthritis resistant to further conservative measures Surgeon: Barrington Garcia Project Program Manager: Joe Hogan Anesthesia Type: General and Spinal Operative Notes Findings: Osteoarthritis of the right hip affecting mainly the weight-bearing portion of the hip joint Closure Type: primary Specimen(s): none sent Prosthetic devices, grafts, tissues, transplants, or devices: Orte[employer]hew 54 mm R3 three-hole cup 1x 25mm screw 1x 15mm screw 54 mm by 36 mm delta ceramic liner Size 6 standard offset femoral stem 36+ 0 Biolox delta ceramic head Estimated Blood Loss (mL): 500 Procedure in detail: Patient was met in the preoperative holding area where the site and side of surgery marked by . Informed consent had been reviewed in clinic was also reviewed the preoperative holding area. All last minute questions were answered. Patient was brought back in the operating room where he received a spinal anesthetic. He then transferred onto the Richards table. He was then placed in well-padded Richards table boots bilaterally and induced under general anesthesia. The right lower extremity then prepped and draped in normal sterile fashion. Surgical time-out was performed verifying the site and side of surgery as well then the patient. Approximately 7 cm long incision starting approximately 2 cm distal and 1 cm lateral to the ASIS aiming towards the fibular head was made in the skin with a 10. Blade. Electrocautery was used to dissect down to the level of the tensor fascia. A new 10. Blade was then used to incise the tensor fascia and Allis clamp was placed on the medial leaflet the tensor muscle itself was reflected laterally. A Cobra placed over the superior aspect of the femoral neck a Meyerding retractor was then placed over lateral aspect the rectus femoris retracted medially. This gave us exposure to the ascending branches of the femoral circumflex vessels these were coagulated using electrocautery. A 2nd Cobra retractors then placed onto the inferior aspect of the femoral neck and a bent Hohmann was placed over the anterior aspect of the acetabulum to give us good exposure to the capsule. Inverted T-shaped capsulotomy was then performed and the inferior and superior leaflets were then tagged with a FiberWire suture. The Cobra retractors then placed intracapsularly which gave us good exposure the femoral neck. A reciprocating saw was then used to make a femoral neck cut based off of our preoperative templated films. Corkscrew was then used to remove the femoral head. Retractors then were placed as well as a soft tissue protector sleeve and this gave us good exposure of the acetabulum. The pulvinar was then removed using electrocautery and suction the remnant of the labrum was removed using a Manchester blade. I began reaming with a 44 mm Reamer to medialized followed by a 46 and 48 mm Reamer. I then brought in fluoroscopic guidance and reamed this last several reamers under fluoroscopic guidance until got to 52 mm Reamer which point starting good resistance. 53 mm Reamer was then selected and this was also had good resistance. A 54 mm 3 hole R3 cup was then selected. This was then malleted into place under fluoroscopic guidance 2 screws were then placed 1 was 25 mm in length 1 was 15 mm in length the 54 x 36 mm neutral offset delta Biolox ceramic liner was then impacted into place and the retractors removed. Femoral elevator hook was then placed into the posterior aspect of the femur the femur was externally rotated 120? extend the floor and adducted. A bent Hohmann was then placed over the superior aspect of the superior leaflet of the capsulotomy and the capsule was then further released off the inner shoulder of the greater trochanter to give us exposure to the short external rotators. A controlled release of the short external rotators then performed to allow the femur to come up into the wound. The elevator was then used to elevate the femur. A Shaver retractor was then placed over the medial calcar. Next I used the canal finer followed by the anchor to find the canal. I then verify that I was in the canal using a ball-tip guidewire. I then used chili pepper broach followed by a size 1 broach and then began upsizing patella cut to size 5 I then calcar planed off the size 5 and subsequently removed a size 5 broach and went up to a size safe. I then trialed off the size 6 with a standard offset head and 36+ 0 head the hip was then reduced it was stable to maximal external rotation as well as external rotation 90? and extension to floor. Fluoroscopy was brought in which showed that we were several mm long on the operative side otherwise good fit and fill with the stem. The hip was then dislocated the trial components were then removed and then countersunk a 5. Broach and countersunk the 6. Broach and calcar planed again. I then trialed again with a standard offset neck and a 36+ 0 and brought the hip through range of motion. We still 1-2 mm along the side however I did not want to shorten anymore due stability. A size 6 standard offset stem was then selected and malleted into place and a 36+ 0 delta Biolox head was then malleted onto the trunnion. The hip was reduced a final time Betadine solution was then placed into the wound allowed to sit for several minutes final fluoroscopic imaging was obtained the Betadine solution was then lavaged with copious normal saline local anesthetic was infiltrated in the periarticular soft tissues including capsule. Capsule was then repaired using number 2 running Ethibond the FiberWire sutures were then r emoved. The tensor fascia layer was then closed using 1. Vicryl in a running locking fashion followed by 2 Vicryl in subcutaneous layer followed by running 3-0 Stratafix Dermabond and Aquacel dressing. Post-operative Condition: stable Disposition: PACU Plan for aftercare: 24 hours postop antibiotics, aspirin 81 mg b.i.d. for 6 weeks for DVT prophylaxis, weight-bearing as tolerated lower extremity.
--- NOTE | 2021-02-09 10:56 | SUR.PHASEI ---
Report called to floor to IVETTE Ellis. Pt transferred to floor in stable condition with all belongings.
[2021-02-09] MEDS: LACTATED RINGERS 1,000 ML 125 ML IV (12:36)
--- NOTE | 2021-02-09 12:50 | PT.IPTN ---
Current Diagnoses Unilateral primary osteoarthritis, right hip (02/09/21) Surgery Performed Operation Date: 02/09/21 07:45 Actual Procedures p Total Hip Arthroplasty/Anterior Approach(Right) - Barrington Garcia MD Physical Therapy Treatment Note M3 PT-IP Subjective Start: 02/09/21 13:03 Freq: NEEDED Status: Active Protocol: Document 02/09/21 12:50 AB (Rec: 02/09/21 13:06 AB [id number]) Subjective Physical Therapy Visit Type Type Administrative Note Notes checked with pt and pt still is numb on his LE and is not ready for PT eval. Post-op folder given to pt. PLOF and home set up obtained. will f/ u tomorrow.
[2021-02-09] MEDS: diphenhydrAMINE 50 MG/ML VIAL 25 MG IV (13:59)
[2021-02-09] MEDS: ACETAMINOPHEN 325 MG TABLET 650 MG PO ×2 (14:03→20:53)
[2021-02-09] MEDS: OXYCODONE IR 5 MG TABLET 10 MG PO (18:32)
[2021-02-09] MEDS: hydrOXYzine pamoate 25 MG CAPSULE PO (20:52)
[2021-02-09] MEDS: ASPIRIN EC 81 MG TABLET PO (20:53)
[2021-02-09] MEDS: DOCUSATE 100 MG CAPSULE PO (20:53)
[2021-02-10] MEDS: CEFAZOLIN 1 GM VIAL 2 GM IV
[2021-02-10] MEDS: diphenhydrAMINE 50 MG/ML VIAL 25 MG IV (00:14)
[2021-02-10 04:17] VITALS: BP 127/84; PULSE 88; RESP 18; TEMP 36.8; O2SAT 98
[2021-02-10] MEDS: hydrOXYzine pamoate 25 MG CAPSULE PO (05:42)
[2021-02-10] MEDS: OXYCODONE IR 5 MG TABLET PO ×2 (05:42→07:01)
[2021-02-10 06:34] LABS: Hematocrit 33.8 % (41-53); Hemoglobin 11.1 g/dL (13.5-17.5)
[2021-02-10 07:45] VITALS: BP 129/83; PULSE 78; RESP 18; TEMP 36.2; O2SAT 96
--- NOTE | 2021-02-10 09:25 | PT.IIE ---
Current Diagnoses Unilateral primary osteoarthritis, right hip (02/09/21) Surgery Performed Operation Date: 02/09/21 07:45 Actual Procedures p Total Hip Arthroplasty/Anterior Approach(Right) - Barrington Garcia MD Surgical History (Last Reviewed 02/10/21 @ 11:32 by Joe Hogan PA-C) Anesthesia History of knee replacement (~2014) Status post rotator cuff repair (~2014) Medical History (Last Reviewed 02/10/21 @ 11:32 by Joe Hogan PA-C) Anxiety (~1999) Chicken pox Chronic back pain (~1999) Gastric reflux GI bleed due to NSAIDs (05/2020) Hearing loss (~2001) Hypertension (~2005) Measles Mumps Shoulder pain (~2014) Sleep apnea (~2014) Vertigo (~1999) Vision disorder Physical Therapy Inpatient Evaluation/Re-Eval M1 PT/OT-IP Prior Functional Status Start: 02/09/21 13:03 Freq: NEEDED Status: Active Protocol: Document 02/10/21 09:25 AB (Rec: 02/10/21 13:12 AB [id number]) Medical Review Prior Functional Status Medical History Reviewed Yes Communication able to make needs known Mobility and Gait pt stated that he is independent with all mobilities and ambulation without AD Social History Household Members spouse Living Arrangements House Number of Floors (Floors) One Floor Number of Stairs To Enter/Railing? 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 M2 PT-IP Current Condition Start: 02/09/21 13:03 Freq: NEEDED Status: Active Protocol: Document 02/10/21 09:25 AB (Rec: 02/10/21 13:12 AB [email or web address]) Physical Therapy Current Condition Current Condition Evaluation Date 02/10/21 Treatment Diagnosis s/p R DAVIN anterior approach; difficulty in walking Onset Date 02/09/21 Precautions Anterior Hip Precautions No Hip Extension,No Hip External Rotation Weight Bearing Status Weight Bearing Status Weight Bear as Tolerated Allowed Weight Bearing Amount (enter % RLE WBAT or #) (%) M3 PT-IP Subjective Start: 02/09/21 13:03 Freq: NEEDED Status: Active Protocol: Document 02/10/21 09:25 AB (Rec: 02/10/21 13:12 [id number]) Subjective Physical Therapy Visit Type Type Initial Evaluation Visit Start Time 09:25 Visit Stop Time 10:32 Total Visit Minutes 67 Number of PUMPMAN Visits 0 Physical Therapy Visit Comments Patient Comments pt is agreeable to do PT Therapy Pain Assessment Pain When Pain Assessed At Rest Pain Present Pain Present Pain Reported Location Right Hip Intensity 6 Scale Used Numeric (0 - 10) Pain Management Techniques Apply Cold,Distraction, Modification of Treatment,Re- positioning,Timing of Activity with Medications M4 PT-IP Mobility and Gait Start: 02/09/21 13:03 Freq: NEEDED Status: Active Protocol: Document 02/10/21 09:25 AB (Rec: 02/10/21 13:12 [id number]) PT-Bed Mobility Assessment Supine to Sit Supine to Sit Standby Assistance Sit to Supine Sit to Supine Standby Assistance PT-Transfer Assessment Sit to and From Stand Sit to and from Stand Standby Assistance,Contact Guard Assistance,1 Person Assistance,Use of Upper Extremities Equipment Transfer Assistive Device Bed Rail,Front Wheeled Walker Orthotic/Prosthetic Devices or Brace: No Transfers Transfer Destination Chair Transfer Technique ambulated using FWW Transfer Ability Level of Assist Standby Assistance,Contact Guard Assistance,1 Person Assistance,Use of Upper Extremities Comments Mobility Comments educated on hip precautions. pt completed supine to sit SBA . spouse in room with pt. pt was able to sit on EOB SBA. completed sit to stand CGA and ambulated in room using FWW CGA. pt sat on chair. educated spouse on hwo to use safety belt and how to assist pt. spouse was able to counter demonstrate and assisted pt with ambulation in the hallway using FWW SBA to CGA. educated pt and spouse regarding stair climbing. pt completed up/down step initially with PT assisting and then spouse counter demonstrated and was able to assist pt safely. pt ambulated back to his room. agreed to sit on chair. call light and table placed within reach. informed nurse regarding pt's mobiltiy. Gait Assessment Gait Gait Assistance Required: Standby Assistance,Contact Guard Assist Distance (Feet) 200 Able to Maintain Weight Bearing Status Yes During Gait Assistive Devices Assistive Device Gait Belt,Front Wheeled Walker Orthotic/Prosthetic Devices or Brace: No Gait Deviations General Gait Pattern Antalgic,Decreased Stride Length,Decreased Feet Clearance Factors Limiting Gait Function Factors Limiting Gait Function Decreased Activity Tolerance, Decreased Sensation,Decreased Strength,Limited Range of Motion,Pain,Poor Balance Comments Gait Comments pls refer to mobility section for details Stair Climbing Assessment Evaluation Level of Assist On Stairs Contact Guard Assistance,1 Person Assistance Devices Stair Climbing Assistive Devices Left Railing,Right Railing Technique/Endurance Stair Climbing Direction Ascend and Descend Stair Climbing Technique Step to Step Number of Steps Climbed 3 Query Text: Stair Climbing Set # Repetitions (reps) 2 PT-Balance Assessment Sitting Balance and Reactions Static Sitting Balance Ability Good Dynamic Sitting Balance Ability Good Standing Balance and Reactions Static Standing Balance Ability Fair Dynamic Standing Balance Ability Fair Device Used FWW M5 PT-IP Objective Assessments Start: 02/09/21 13:03 Freq: NEEDED Status: Active Protocol: Document 02/10/21 09:25 AB (Rec: 02/10/21 13:12 AB [id number]) Orientation Orientation/Cognition Level of Alertness Alert Orientation Name,Place,Situation Language Function Ability No Deficits Noted Safety Awareness Understands Safety Issues Memory Description No Deficits Noted Gross Range of Motion Lower Extremity ROM Assessment Within Functional Limits Strength Lower Extremity Strength Assessment Right Impaired Hip 3+/5 Knee 4-/5 Coordination Assessment Gross Coordination Gross Coordination WNL Sensation Assessment Sensation Gross Sensation WNL Muscle Tone Muscle Tone WNL Yes M6 PT-IP Treatment Start: 02/09/21 13:03 Freq: NEEDED Status: Active Protocol: Document 02/10/21 09:25 AB (Rec: 02/10/21 13:12 AB [id number]) Physical Therapy Treatment Exercises Exercises Heel Slides Education Education Provided Precautions,Weight Bearing Status,Post-Op Packet,Safety M7 PT-IP Assessment and Plan Start: 02/09/21 13:03 Freq: NEEDED Status: Active Protocol: Document 02/10/21 09:25 AB (Rec: 02/10/21 13:12 AB [id number]) PT Summary Assessment and Plan Potential Rehabilitation Potential Good Status of Condition at Evaluation Stable Summary Impairments Pain,ROM,Strength,Balance, Coordination,Bed Mobility, Transfers,Gait,Activity Tolerance Assessment Summary pt requiring SBA to CGA with mobility. caregiver training conducted and spouse was able to assist pt safely. pt may go home when medically stable. Goals Bed Mobility Goal Independent Transfer Goal Independent,Front Wheeled Walker Gait Goal Independent,Front Wheel Walker Gait Distance 250 Other Goals up/down 2 steps B rails SBA Days to Meet Goals 5 Frequency of Treatment Frequency Of Treatment Twice a Day Treatment Plan Physical Therapy Treatment Plan Bed Mobility Training,Transfer Training,Gait Training, Therapeutic Exercise,Balance Retraining,Post Op Education, Discharge Planning,Hot or Cold Pack,Neuromuscular Re-ed, Coordination Retraining,Manual Therapy Precautions Anterior Hip Precautions No Hip Extension,No Hip External Rotation Other Precautions RLE WBAT Recommendations To Nursing Amount of Assist Needed 1 Person Assist Discharge Recommendations PT Discharge Recommendations Home with Assistance, Outpatient PT Transportation Needs at Discharge Private Vehicle
[2021-02-10] MEDS: OXYCODONE IR 5 MG TABLET 10 MG PO ×3 (10:01→14:06)
[2021-02-10] MEDS: ACETAMINOPHEN 325 MG TABLET 650 MG PO ×2 (10:01→14:06)
[2021-02-10] MEDS: DOCUSATE 100 MG CAPSULE PO (10:01)
[2021-02-10] MEDS: ASPIRIN EC 81 MG TABLET PO (10:01)
[2021-02-10] MEDS: lisinopriL 20 MG TABLET PO (10:02)
[2021-02-10] MEDS: hydroCHLOROthiazide 25 MG TABLET 12.5 MG PO (10:02)
--- NOTE | 2021-02-10 11:30 | PM.DS.1 ---
History of Present Illness History of Present Illness Date Patient Seen: 02/10/21 Time Patient Seen: 11:30 Chief complaint: R Total Hip Arthroplasty/Anterior Approach *OPB* Narrative: Refer to previous HPI. Discharge Providers Provider Discharge Date: 02/10/21 Primary care physician: Siobhan Skinner DO Consults: 02/09/21 07:19 Consult to Respiratory Therapy Evaluate & Treat Comment: Physician Instructions: Evaluate and treat 02/09/21 11:02 Consult to Discharge Planning Routine Comment: Consult to Physical Therapy Evaluate & Treat Comment: Physician Instructions: post op DAVIN protocol Consult to Respiratory Therapy Evaluate & Treat Comment: Physician Instructions: Evaluate and treat 02/09/21 11:10 Consult to Respiratory Therapy Evaluate & Treat Comment: history of OLIVIA; not using CPAP Physician Instructions: Evaluate and treat Discharge provider: Joe Hogan PA-C Summary Hospital Course Discharge Diagnosis: Right hip osteoarthritis Status post right anterior total hip arthroplasty Hospital Course: Patient was admitted to the hospital following the above-listed procedure for the above-listed diagnosis. Following the procedure the patient has been convalescing appropriately in his pain has been managed with his current pain management regimen. Throughout his stay in the hospital the patient has denied fever, chills, nausea, chest pain, shortness of breath, or urinary retention. Dressing over the incision site has remained clean, dry, and intact. Patient has successfully worked on ambulation with the assistance of a front wheeled walker with physical therapy. He has remained weight-bearing as tolerated. Aspirin 81 mg twice daily has been administered for DVT prophylaxis along with the assistance of sequential compression devices. Status at Discharge Cognitive/behavioral status at discharge: oriented Functional status at discharge: uses cane/walker Overall status at discharge: patient is progressing back to baseline Exam Vital Signs (past 8 hours): - 02/10/21 04:17 02/10/21 07:45 Temperature 98.2 F 97.2 F L Pulse Rate 88 78 Respiratory Rate 18 18 Blood Pressure 127/84 129/83 Pulse Oximetry 98 96 Oxygen Delivery Method Room Air Oxygen Flow Rate 0 Narrative Exam Narrative: 60-year-old male postop day 1 status post right anterior total hip arthroplasty. Patient is resting comfortably in bed, is in no acute distress, is alert and oriented x3. Skin is warm and dry, and the skin surrounding the incision site is free of erythema, warmth, induration, or discharge. Aquacel dressing over the incision site is clean, dry, and intact. Good sensation appreciated throughout the bilateral lower extremities to light touch. Gross motor function intact. DP pulses palpated bilaterally and are even. Calves are soft and nontender, negative Homans sign. No other signs of DVT appreciated. Const General: cooperative, healthy appearing and comfortable Resp Effort & Inspection: normal respiratory effort and able to speak in complete sentences Skin General: no rashes or lesions noted Objective Labs Result Diagrams: 02/10/21 06:14 Labs: Laboratory Results - last 24 hr 02/10/21 06:14 Hgb 11.1 L Hct 33.8 L [facility] Medical History Anxiety (~1999) Chicken pox Chronic back pain (~1999) Gastric reflux GI bleed due to NSAIDs (05/2020) Hearing loss (~2001) Hypertension (~2005) Measles Mumps Shoulder pain (~2014) Sleep apnea (~2014) Vertigo (~1999) Vision disorder Surgical History Anesthesia History of colonoscopy (05/2020) History of esophagogastroduodenoscopy (EGD) (05/2020) History of knee replacement (~2014) History of vasectomy Hx of arthroscopy of left knee Hx of tonsillectomy Status post rotator cuff repair (~2014) Family History Brother Age: 69 Hypertension Brother Age: 66 Hypertension Brother Age: 61 Hypertension Father Hypertension Mother Hypertension Stroke Sister Age: 68 Hypertension Social History marital status: household members: spouse lives independently: Yes caregiver/support person: No education level: vocational occupational status: employed Smoking Status: Former smoker alcohol intake: current substance use type: does not use Discharge Assessment & Plan Assessment and Plan Assessment: Patient is doing well and is stable. Plan of Treatment: Patient is to continue physical therapy in the outpatient setting following discharge from the hospital. First postoperative visit in clinic is scheduled for 2 weeks following discharge. Current pain management regimen is to be continued as it is adequately controlled the patient's pain level. Aspirin 81 mg twice daily is to be continued for 6 weeks for DVT prophylaxis. Patient is to remain weight-bearing as tolerated with the assistance of a front wheeled walker. Patient is to contact clinic with any concerns or questions. Any signs of increased redness, swelling, warmth, pain, or discharge from around the incision site should be reported to the clinic. Avoid soaking the incision site a placing topical ointments over the incision site. Discharge Plan Discharge Plan Patient Disposition: Home Provider Discharge Comment: Patient cleared for discharge pending PT clearance. Discharge orders & Medications Discharge Orders: Discharge (Order); Ordered 02/10/21 Ordered By: Joe Hogan Prescriptions: New acetaminophen 325 mg Tablet 650 mg PO TID Qty: 90 RF: 0 aspirin 81 mg Tablet,Delayed Release (Dr/Ec) 81 mg PO BID Qty: 90 RF: 0 oxycodone 5 mg Tablet 10 mg PO Q3HR PRN (Reason: Pain, Severe (7-10)) Qty: 42 RF: 0 Continued lisinopril-hydrochlorothiazide 20-12.5 mg tablet 1 tab PO QDAY Qty: 90 RF: 3 paroxetine HCl 40 mg tablet 40 mg PO DAILY Qty: 90 RF: 3 multivitamin [Multiple Vitamins] 1 EACH tablet 1 tab PO QDAY Qty: 0 RF: 0 Follow up/Referrals: Siobhan Skinner DO [Primary Care Provider] - Diet/Activity/Treatments Diet: Diet as Tolerated and Regular Activity: Weight-bearing as tolerated with the assistance of a front wheel walker. Skin/Wound/Dressing Care Report to your healthcare provider any signs of infection, such as:: chills, fever, night sweats, unusual drainage and unusual redness Dressing: Aquacel dressing over the incision site is to remain clean, dry, and intact for 2 weeks. Contact clinic if the dressing becomes damaged or soiled. Other wound treatment: Avoid soaking the incision site. Avoid placing topical ointments over the incision site. Visit Report/Discharge Packet Instructions: DI for Hip Replacement Stand Alone Forms: Surgery Discharge Discharge Data Primary Care Provider: Siobhan Skinner Attending Provider: Barrington Garcia
--- NOTE | 2021-02-10 12:10 | CM.DANOTE ---
Discharge Planning/Care Management DCP: assessment: case received, EMR reviewed and discussed in Team Rounds PT was set to see pt this morning. A d/c order is now noted by VIVIAN Diaz, pending PT clearance. Met now with pt and his Sharla. Introduced self and role. Pt confirms that he has been cleared for home by PT Zoila and is just waiting for final paperwork to be completed. He says he is feeling comfortable with this plan. He has OUTPT PT set up with Balaji Choe at a clinic in [place]. Payer: [facility]. Home today CM Discharge Assessment Start: 02/10/21 12:09 Freq: Status: Active Protocol: Document 02/10/21 12:10 ITV (Rec: 02/10/21 12:10 ITV [id number]) Discharge Planning Assessment Advance Directives? No History Provided By Patient,Family Member,Medical Record Prior Living Arrangements House Household Members spouse Independent with ADL's Yes Is patient alert and oriented? Yes Patient/Family Preference OP PT Therapy Review Status In Process Pre-Anesthesia Assessment Start: 02/02/21 08:59 Freq: Status: Complete Protocol: Document 02/02/21 08:59 CAB (Rec: 02/02/21 09:45 CAB [id number]) Pre-Anesthesia Assessment Patient Information Reviewed Via Phone Assessment Assessment Completed With Patient Diagnostic Results BMP/CMP,CBC Comment Labs/EKG @ 01/19/21 COVID screen-pt needs to schedule Primary Care Provider Siobhan Skinner Seen Specialist in Last 12 Months Yes Specialist Seen General surgeon,Orthopedist Primary Language Irish Preferred Language Irish Project Manager Senior Required No Height 180.34 cm Weight 102.512 kg Body Mass Index (BMI) 31.5 Hearing Ability Hard of Hearing Visual Assist Glasses Dentition Type Partial- Upper Barriers to Learning Auditory Comment Right ear loss of hearing Hx Anesthesia Reactions No: Borderline OLIVIA, per pt, no longer wears CPAP Hx Family Anesthesia Reaction Yes: Daughter PONV Hx Malignant Hyperthermia No Hx Blood Transfusions No Hx Blood Transfusion Reaction No Anesthesia Review Requested No Picture Copyist No alcohol intake current alcohol intake frequency 0-2 drinks per day Smoking Status Former smoker Tobacco type cigarettes how long ago did patient quit smoking Quit >30 years ago Substance Use Type does not use Pain Present Pain Reported Musculoskeletal Symptoms Abnormal Gait,Back Pain, Difficulty Walking,Joint Pain, Muscle Spasms History of Falling (Recent or History of No ) Patient is completely paralyzed or No completely immobile Mental Status Oriented to own ability Is patient on oxygen? No Does patient have TOM/SOB No Hx Sleep Apnea Yes: Borderline per pt, no longer wears CPAP CPAP/BIPAP use prescribed not used Currently Taking a Beta Domo No Can You Climb a Flight of Stairs Without Yes SOB Hx Chest Pain No Hx SOB No Hx Syncope or Dizziness Yes: Vertigo >10 years ago, now resolved Anti-Coagulant Therapy No Has a Floor Surfacer No Cardiac Testing No Hx Pacemaker/ICD No Pacemaker Rep Required? No Cardiac Clearance Received Not Applicable Comment No regular exercise routine Diet Type At Home Regular dysphagia No Gastrointestinal Symptoms Reflux Urinary Catheter Present No Hx Urinary Self Catheterization No Diabetes No HgbA1C 5.4 Date 01/19/21 Hx Drug Resistant Organism No Presence of External or Internal Medical Yes: Left knee Devices Have you had any close contact with No someone diagnosed with COVID-19? Marital Status Lives With spouse Prior Living Arrangements House Support System Spouse Does the Patient Have Assistance After Yes Surgery Patient Discharge Plan Description Return Home Comment Pt advised possible same day surgery per surgeon. Feels Safe in Current Environment Yes Been Physically Hurt or Threatened By a No Person in Current Environment Do you have thoughts of harming yourself None or others? Are you currently considering suicide? No Do you have a plan to hurt yourself or No Plan others? Do You Have Any Spiritual Beliefs That No May Affect Your HC Choices? Do You Have Any Cultural Practices That No May Affect Your HC Choices? Comment Restoration Who Can We Speak to About Patient's Care Family, friends Identifying Code for Release of Patient Declines to issue Information Health Care Proxy/Next of Kin Sharla () Health Care Proxy Emergency Contact Name Sharla () Emergency Contact Advance Directives? No Power of Two Way Radio Technician No PAC Instructions Durable medical equipment, Medications to take/avoid, Nasal antibiotic,No ETOH/ petroleum product on skin DOS, NPO,Post-op transportation,Pre -surgical wash,Sturdy shoes/ comfortable clothes
--- NOTE | 2021-02-10 14:54 | PC.NURSE ---
1415 Patient showered with help of TELEMETRY NURSE and his , tolerating ambulation and cleared for discharge. Aquacel CDI. IV removed. Patient has follow up appointment scheduled. Discharge instructions and home care reviewed with patient and his , they state understanding and have no further questions or concerns at this time. Escorted out via wheelchair with all belongings to home with his .
== END 2021-02-10 14:20 | disposition home or self-care (01) ==
LOC: OR 06:28 → AC 06:29
PROVIDERS: PCP Family Medicine; Referring Provider Family Medicine; Visit Provider Orthopaedic Surgery Adult Reconstructive Orthopaedic Surgery
PROC: (CPT 27130; principal; 2021-02-09 07:45)
DX: M16.11 Unilateral primary osteoarthritis, right hip (principal); I10 Essential (primary) hypertension; F32.9 Major depressive disorder, single episode, unspecified; G47.33 Obstructive sleep apnea (adult) (pediatric); E66.9 Obesity, unspecified; K21.9 Gastro-esophageal reflux disease without esophagitis
CPT/HCPCS: 27130; 36415; 72170; 73502; 76000; 85014; 85018; 94762; 97116; 97161; 97530; C1776; J0690; J1100; J1200; J2250; J2270; J2274; J2405; J2704; J2795; J3010

== ENCOUNTER → 2021-07-13 17:36 | Outpatient (CLI) | payer OTHER, SELFPAY ==
[2021-02-09 11:11] VITALS: BMI 31.5
[2021-07-13 18:06] LABS: Add Manual Diff / Slide Review NO; Basophils Absolute Auto 0 /uL (0-100); Basophils Percent Auto 0.7 % (0-2); Eosinophils Absolute Auto 100 /uL (0-450); Eosinophils Percent Auto 2.3 % (2-4); Hematocrit 38.3 % (41-53); Lymphocytes Absolute Auto 2600 /uL (1100-4500); Lymphocytes Percent Auto 42.5 % (25-40); Mean Corpuscular HGB Conc 34.1 % (30-36); Monocytes Absolute Auto 600 /uL (0-900); Monocytes Percent Auto 9.8 % (3-14); Neutrophils Absolute Auto 2700 /uL (1500-7000); Neutrophils Percent Auto 44.7 % (50-75); Platelet Count 229 X10^3/uL (150-400); Red Blood Cell Count 4.35 X10^6/uL (4.5-5.9); Red Cell Distribution Width 15.2 % (11.6-14.8); White Blood Cell Count 6.1 X10^3/uL (4.5-11.0)
[2021-07-13 18:42] LABS: C-Reactive Protein Quant < 0.5 mg/dL (<1.0)
[2021-07-13 18:46] LABS: Erythrocyte Sedimentation Rate 8 MM/HR (0-15)
== END ==
PROVIDERS: PCP Family Medicine; Referring Provider Orthopaedic Surgery; Visit Provider Orthopaedic Surgery
DX: Z01.812 Encounter for preprocedural laboratory examination (principal)
CPT/HCPCS: 36415; 85025; 85651; 86140

== ENCOUNTER → 2022-11-13 12:05 | Outpatient (CLI) | payer OTHER, SELFPAY ==
[2021-02-09 11:11] VITALS: BMI 31.5
[2022-11-13 14:04] LABS: Add Manual Diff / Slide Review NO; Basophils Absolute Auto 0 /uL (0-100); Basophils Percent Auto 0.7 % (0-2); Eosinophils Absolute Auto 100 /uL (0-450); Eosinophils Percent Auto 2.1 % (2-4); Hemoglobin 13.9 g/dL (13.5-17.5); Lymphocytes Absolute Auto 1800 /uL (1100-4500); Lymphocytes Percent Auto 28.9 % (25-40); Mean Corpuscular HGB Conc 33.9 % (30-36); Mean Corpuscular Hemoglobin 30.9 PG (26-34); Mean Corpuscular Volume 91.3 fL (80-100); Monocytes Absolute Auto 500 /uL (0-900); Monocytes Percent Auto 7.2 % (3-14); Neutrophils Absolute Auto 3800 /uL (1500-7000); Neutrophils Percent Auto 61.1 % (50-75); Platelet Count 239 X10^3/uL (150-400); Red Blood Cell Count 4.49 X10^6/uL (4.5-5.9); White Blood Cell Count 6.3 X10^3/uL (4.5-11.0)
[2022-11-13 14:20] LABS: Appearance Urine UA CLEAR; Bilirubin Urine UA NEGATIVE (NEGATIVE); Color Urine UA YELLOW; Glucose Urine UA NEGATIVE (Negative); Ketones Urine UA NEGATIVE (NEGATIVE); Leukocyte Esterase Urine UA NEGATIVE (NEGATIVE); Nitrite Urine UA NEGATIVE (Negative); Occult Blood Urine UA NEGATIVE (Negative); Protein Urine UA NEGATIVE (Negative); Specific Gravity Urine UA 1.025 (1.000-1.035); Urobilinogen Urine UA 0.2 E.U./dL (0.2); pH Urine UA 5.5 (4.5-8.0)
[2022-11-13 14:39] LABS: Bacteria Urine None Seen; Culture Indicated Urine Cult Not Indicated; RBC Urine None Seen (0-5/HPF); Squamous Epithelial Cell Urine None Seen (0-5/HPF); WBC Urine None Seen (0-5/HPF)
[2022-11-13 14:39] LABS: Alanine Aminotransferase 32 IU/L (<50); Albumin 4.5 g/dL (3.5-5.0); Albumin Globulin Ratio 1.6 (1.0-2.8); Alkaline Phosphatase 66 U/L (38-126); Aspartate Aminotransferase 33 IU/L (17-59); BUN Creatinine Ratio 18.7 (6-22); Bilirubin Total 0.9 mg/dL (0.2-1.3); Blood Urea Nitrogen 20 mg/dL (9-20); Calcium 9.4 mg/dL (8.4-10.2); Carbon Dioxide 20 mmol/L (22-32); Chloride 105 mmol/L (98-107); Cholesterol 204 mg/dL (140-199); Estimated Glomerular Filt Rate > 60 mL/min (>60); Globulin 2.9 g/dL (1.7-4.1); Glucose 88 mg/dL (80-110); HDL Cholesterol 47 mg/dL (40-60); HEMOLYSIS < 15 (0-50); LDL Cholesterol Calculated 122 mg/dL (<100); Potassium 4.3 mmol/L (3.4-5.1); Sodium 136 mmol/L (137-145); Total Protein 7.4 g/dL (6.3-8.2); Triglycerides 176 mg/dL (35-150)
[2022-11-14 15:48] LABS: Prostate Specific Antigen Scrn 0.823 ng/mL (0.1-4.0)
== END ==
PROVIDERS: PCP Family Medicine; Referring Provider Family Medicine; Visit Provider Family Medicine
DX: D64.9 Anemia, unspecified (principal); I10 Essential (primary) hypertension; E66.9 Obesity, unspecified; E78.5 Hyperlipidemia, unspecified; Z12.5 Encounter for screening for malignant neoplasm of prostate; R35.0 Frequency of micturition
CPT/HCPCS: 36415; 80053; 80061; 81001; 85025; G0103